=== PATIENT | female | born 2000 | race Two or more races ===

== ENCOUNTER 2024-03-07 13:07 | Emergency (ER) | payer MEDICAID ==
[~2024-03-07] VITALS: Ht 154.9 cm; Wt 85.0 kg
[2024-03-07 13:26] VITALS: TEMP 98.8
[2024-03-07 13:48] LABS: BASOPHILS % (AUTO) 0.6 % (0.0-2.0); EOSINOPHILS % (AUTO) 0.3 % (1.0-6.0); HEMATOCRIT 35.5 % (36-46); HEMOGLOBIN 11.8 g/dL (12.0-16.0); LYMPHOCYTES # (AUTO) 3.4 K/uL (1.0-4.8); MEAN CORPUSCULAR HGB CONC 33.3 G/dL (31.0-37.0); MEAN CORPUSCULAR VOLUME 90 fL (80-100); MONOCYTES # (AUTO) 2.2 K/uL (0.1-1.0); MONOCYTES % (AUTO) 9.7 % (2.0-9.0); NEUTROPHILS # (AUTO) 17.1 K/uL (1.8-7.7); NEUTROPHILS % (AUTO) 74.4 % (40.0-70.0); PLATELET COUNT (AUTO) 345 K/uL (150-450); RED BLOOD CELL COUNT(AUTO) 3.93 MIL/uL (4.00-5.20); RED CELL DISTRIBUTION WIDTH 13.3 % (11.5-14.5)
[2024-03-07 14:00] LABS: ANION GAP 10 mmol/L (8-16); CALCIUM, TOTAL 9.4 mg/dL (8.8-10.5); CARBON DIOXIDE 25 mmol/L (22-29); CHLORIDE 98 mmol/L (98-107); CREATININE 0.47 mg/dL (0.60-1.30); GLOMERULAR FILTR. RATE CALC > 60 mL/min (>60); GLUCOSE,RANDOM 95 mg/dL (70-110); POTASSIUM 4.3 mmol/L (3.5-5.1); SODIUM SERUM 133 mmol/L (136-145); UREA NITROGEN, BLOOD 12 mg/dL (7-18)
[2024-03-07 14:11] LABS: ALANINE AMINOTRANSFERASE 37 U/L (12-78); ALBUMIN 3.3 g/dL (3.4-5.0); ALKALINE PHOSPHATASE 65 U/L (46-116); ASPARTATE AMINOTRANSFERASE 18 U/L (15-37); BILIRUBIN,TOTAL 0.4 mg/dL (0.1-1.0); HCG,QUANTITATIVE < 1 mIU/mL (0-6); LIPASE 26 U/L (16-77); TOTAL PROTEIN, SERUM 8.9 g/dL (6.4-8.2)
[2024-03-07 16:27] LABS: APPEARANCE,URINE CLEAR (CLEAR); BILIRUBIN,URINE NEGATIVE (NEGATIVE); COLOR,URINE LIGHT YELLOW (YELLOW); GLUCOSE, URINE (UA) NEGATIVE (NEGATIVE); KETONES,URINE NEGATIVE (NEGATIVE); LEUKOCYTE ESTERASE ,URINE SMALL (NEGATIVE); NITRATE,URINE NEGATIVE (NEGATIVE); OCCULT BLOOD,URINE SMALL (NEGATIVE); PH,URINE 5.5 (5.0-8.0); PROTEIN,URINE TRACE mg/dL (NEGATIVE); SPECIFIC GRAVITIY, URINE 1.026 (1.003-1.030); UROBILINOGEN,URINE <=1.0 mg/dL (<=1.0)
[2024-03-07] MEDS: KETOROLAC TROMETHAMINE 60 MG/2 ML VIAL IM ONE (16:56)
[2024-03-07] MEDS: ACETAMINOPHEN 500 MG TABLET PO ONE (16:57)
[2024-03-07] MEDS: MECLIZINE HCL 25 MG TABLET PO ONE (16:57)
[2024-03-07] MEDS: ONDANSETRON HCL 4 MG TABLET PO ONE (16:57)
[2024-03-07 17:12] LABS: BACTERIA,URINE Moderate /HPF (None Seen)
[2024-03-07 17:13] LABS: SQUAMOUS EPITHELIAL CELL,UR Moderate /LPF (None Seen)
[2024-03-07] MEDS ORDERED: MECL-134 PO (17:38)
[2024-03-07] MEDS ORDERED: ONDA-104 PO (17:38)
[2024-03-07] MEDS ORDERED: ACET-66 PO (17:38)
[2024-03-07 17:47] VITALS: BP 118/71; PULSE 84; RESP 18
== END 2024-03-07 17:55 | disposition home or self-care (01) ==
LOC: EMS 13:08
DX: N39.0 Urinary tract infection, site not specified (principal); G44.209 Tension-type headache, unspecified, not intractable; D72.829 Elevated white blood cell count, unspecified
CPT/HCPCS: 99285; 70450; 80053; 81001; 83690; 84702; 85025; 36415; 87086; 87186; 96372; J1885; Q0162

== ENCOUNTER 2024-10-02 15:02 | Emergency (ER) | payer MEDICAID, OTHER ==
[~2024-10-02] VITALS: Ht 162.6 cm; Wt 81.8 kg
[~2024-10-02 15:02] MED LIST: ACET-66 PO; MECL-134 PO; ONDA-104 PO
[2024-10-02 15:04] VITALS: TEMP 98.2
[2024-10-02 16:00] VITALS: BP 121/66; PULSE 79; RESP 17; O2SAT 98
== END 2024-10-02 19:21 | disposition home or self-care (01) ==
LOC: EMS 15:02
DX: R51.9 Headache, unspecified (principal); F41.9 Anxiety disorder, unspecified; R00.2 Palpitations
CPT/HCPCS: 99281; Z7502

== ENCOUNTER 2025-03-21 13:09 | Emergency (ER) | payer OTHER ==
[~2025-03-21] VITALS: Ht 165.1 cm; Wt 81.8 kg
[2025-03-21 13:12] VITALS: BP 127/74; PULSE 84; RESP 18; TEMP 97.6; O2SAT 96
[2025-03-21 15:44] LABS: COVID AG,FIA SOURCE NASAL SWAB
[2025-03-21 15:53] LABS: HCG,QUAL URINE NEGATIVE (NEGATIVE)
[2025-03-21 15:58] LABS: APPEARANCE,URINE CLEAR (CLEAR); BILIRUBIN,URINE NEGATIVE (NEGATIVE); COLOR,URINE YELLOW (YELLOW); GLUCOSE, URINE (UA) NEGATIVE (NEGATIVE); KETONES,URINE NEGATIVE (NEGATIVE); LEUKOCYTE ESTERASE ,URINE NEGATIVE (NEGATIVE); NITRATE,URINE NEGATIVE (NEGATIVE); OCCULT BLOOD,URINE TRACE (NEGATIVE); PH,URINE 7.5 (5.0-8.0); PROTEIN,URINE TRACE mg/dL (NEGATIVE); SPECIFIC GRAVITIY, URINE 1.024 (1.003-1.030); UROBILINOGEN,URINE <=1.0 mg/dL (<=1.0)
[2025-03-21 16:23] LABS: INFLUENZA TYPE A NEGATIVE FOR TYPE A (NEGATIVE); INFLUENZA TYPE B NEGATIVE FOR TYPE B (NEGATIVE); SARS-COV2 (COVID) ANTIGEN,FIA Negative (Negative)
[2025-03-21 16:40] LABS: BACTERIA,URINE None Seen /HPF (None Seen); RBC,URINE 0-2 /HPF (0-2); SQUAMOUS EPITHELIAL CELL,UR Rare /LPF (None Seen); WBC,URINE 0-2 /HPF (0-5)
[2025-03-21] MEDS: OXYMETAZOLINE HCL 0.05% 15 ML NASAL SPRAY NASAL ONE (19:24)
== END 2025-03-21 18:18 | disposition home or self-care (01) ==
LOC: EMS 13:13
DX: J06.9 Acute upper respiratory infection, unspecified (principal); R42 Dizziness and giddiness; Z20.822 Contact with and (suspected) exposure to COVID-19
CPT/HCPCS: 81001; 84703; 87804; 99283